=== PATIENT | female | born 1930 | race Caucasian/White ===

== ENCOUNTER 2017-01-18 14:23 | Observation (INO) | payer MEDICARE, BC ==
[~2017-01-18] VITALS: Ht 170.2 cm; Wt 51.7 kg
--- NOTE | ~2017-01-18 | DS ---
PATIENT'S NAME: ALEX BRAY [facility] AGE: 86 Y [address] ROOM: [place] [address] LOCATION: GPCU ADMIT DATE: 01/18/2017 Discharge Summary DISCHARGE DATE: 01/21/2017 FAMILY PHYSICIAN: Lilian Moran APRN ATTENDING PHYSICIAN: Ran Mercado DISCHARGE DIAGNOSES: 1. Chest pain. 2. Syncope. 3. Anxiety. 4. Atrial fibrillation. 5. Atrial flutter. 6. Coronary artery disease. 7. Essential hypertension. 8. Irritable bowel syndrome. 9. Restless legs syndrome. CONSULTS DURING ADMISSION: Cardiology. PROCEDURE DURING ADMISSION: None. HOSPITAL COURSE: The patient is an 86-year-old female with above comorbidities who was admitted for chest pain and syncopal episode. The patient had her enzymes trended out and was on telemetry which were unremarkable. The patient was evaluated by Cardiology and had medication adjustments to her, sotalol which improved her symptoms. Upon day of discharge, the patient was asymptomatic, ambulating and eating without difficulty. DISCHARGE CONDITION: Stable. DISPOSITION: Home. DISCHARGE MEDICATIONS: Please see list. DISCHARGE INSTRUCTIONS: The patient is to follow up with Cardiology and Dr. Mercado in approximately 2 weeks or sooner if any concerns. MD RA BEYER/pippa PATIENT'S NAME: ALEX BRAY [facility] AGE: 86 Y [address] ROOM: [place] [address] LOCATION: GPCU ADMIT DATE: 01/18/2017 Discharge Summary DISCHARGE DATE: 01/21/2017 FAMILY PHYSICIAN: Lilian Moran APRN ATTENDING PHYSICIAN: Ran Mercado /[id number] d: 01/22/17 0604 t: 01/24/17 1253, DISCHARGE SUMMARY
--- NOTE | ~2017-01-18 | CON ---
PATIENT'S NAME: ALEX BRAY [facility] AGE: 86 Y [address] ROOM: [place] [address] LOCATION: GPCU ADMIT DATE: 01/18/2017 Consultation DISCHARGE DATE: FAMILY PHYSICIAN: Lilian Moran APRN ATTENDING PHYSICIAN: Lg Flaherty REFERRING PHYSICIAN: Juanjose Nelson DO CARDIOLOGY CONSULT REPORT REASON FOR CONSULT: Paroxysmal atrial fibrillation. HISTORY OF PRESENT ILLNESS: Ms. Bray is a very pleasant 86-year-old female with history of paroxysmal atrial fibrillation. The patient has been on sotalol. Today, she had recurrent episodes of palpitations. The palpitations lasted for a few seconds each time. Also, she complained of dizziness. No history of syncope. The patient stated that she tripped and fell yesterday but denied any loss of consciousness. No history of chest pain. No history of increasing shortness of breath. The patient stated that she is physically very active. REVIEW OF SYSTEMS: The patient denied any recent change in vision. No history of nausea, vomiting, diarrhea, or constipation. The patient denied any history of fever; however, she has had dry cough off and on and occasional expectoration. She denied any urinary symptoms. Review of other systems is essentially negative. PAST MEDICAL HISTORY: Paroxysmal atrial fibrillation, gastroesophageal reflux disease, history of syncope in the past, essential hypertension. PERSONAL HISTORY: Nonsmoker, nonalcoholic. FAMILY HISTORY: Her mother and her sister had coronary artery disease. SOCIAL HISTORY: The patient is and lives with her . CURRENT MEDICATIONS: 1. Sotalol 120 mg at p.m. and 80 mg in the a.m. 2. Xarelto 20 mg daily. 3. Omeprazole 20 mg daily. 4. Diazepam 5 mg p.o. q.h.s. 5. Aspirin 325 mg daily. PATIENT'S NAME: ALEX BRAY [facility] AGE: 86 Y [address] ROOM: [place] [address] LOCATION: GPCU ADMIT DATE: 01/18/2017 Consultation DISCHARGE DATE: FAMILY PHYSICIAN: Lilian Moran APRN ATTENDING PHYSICIAN: Lg Flaherty PHYSICAL EXAMINATION: GENERAL: She is awake, alert, and oriented, and in no distress. VITAL SIGNS: Her pulse rate is 62 beats per minute, blood pressure is 164/73 mmHg, respiratory rate is 16. HEENT: Her head is atraumatic and normocephalic. Sclerae are clear. Tongue is moist. NECK: No significant jugular venous distention is present. No significant cervical lymphadenopathy is present. CARDIOVASCULAR: S1, S2 are audible. They are regular in rate and rhythm with no audible murmur or rub. RESPIRATORY: Bilateral vesicular breath sounds are audible with no adventitious sounds. ABDOMEN: Soft and nontender. Bowel sounds are present. EXTREMITIES: Showed no significant pedal edema. Healing ecchymosis is present on the left nelson area. NEUROLOGIC: No focal neurological deficits noted. SKIN: Skin is clear except for ecchymosis in the left nelson area. LABORATORY DATA: Sodium 143, potassium 4.1, chloride 108, CO2 of 26, glucose 99, BUN 16, creatinine 0.7, alkaline phosphatase 76, AST 23, ALT 27, magnesium 2.3. CPK 37, CK-MB 0.6, troponin less than 0.04, ProBNP 1178. White blood cell count 6, hemoglobin 13.8, hematocrit 41.8, platelet count 240. RADIOLOGY DATA: Chest x-ray reported prominent cardiac silhouette. Lungs are clear with no focal infiltrate, pleural effusion, or pneumothorax. Her EKG showed sinus rhythm at 65 beats per minute with no acute ST-T wave changes. QTc interval is 462 milliseconds. ASSESSMENT AND PLAN: 1. Paroxysmal atrial fibrillation. The patient is presently in sinus rhythm. We will continue current medical therapy with sotalol and anticoagulation with Xarelto. Monitor the patient on telemetry. Fall precautions. Obtain 2D echocardiogram. 2. Hypertension. We will start the patient on amlodipine and titrate dose as needed for blood pressure control. 3. Palpitations, possibly related to paroxysmal atrial fibrillation. Holter monitor report is not available for review at the present time. Management of other medical problems per primary team. We will follow the patient along with you. Thank you for allowing us in taking part in the care of this pleasant lady. PATIENT'S NAME: ALEX BRAY [facility] AGE: 86 Y [address] ROOM: [place] [address] LOCATION: GPCU ADMIT DATE: 01/18/2017 Consultation DISCHARGE DATE: FAMILY PHYSICIAN: Lilian Moran APRN ATTENDING PHYSICIAN: Lg Flaherty MD LEANDRO MCCARTNEY/modl /[id number] d: 01/19/17 0024 t: 01/28/17 1408, CONSULTATION REPORT
--- NOTE | ~2017-01-18 | ER ---
PATIENT'S NAME: ALEX BRAY [facility] AGE: 86 Y [address] ROOM: [facility] [place] [address] LOCATION: GPCU ADMIT DATE: 01/18/2017 ER/Outpatient Report DISCHARGE DATE: FAMILY PHYSICIAN: Lilian Moran APRN ATTENDING PHYSICIAN: Lg Flaherty Time of Arrival: 1423 hours. Time of Evaluation: 1423 hours. CHIEF COMPLAINT: Near syncope. HISTORY OF PRESENT ILLNESS: The patient is an 86-year-old female, who presents to the emergency department today with a chief complaint of near-syncope. She reports it occurred about 5 hours prior to arrival. She was walking in her hallway when she felt blacking out sensation. She was able to stop and it went away. She does report she has had off and on fluttering in her chest, with the light fluttering with the sharp chest pain on the right side. There is no radiation. Denies any current pain at this time. The patient does have a history of paroxysmal atrial fibrillation, on chronic anticoagulation. The patient denies any ripping or tearing sensation. No radiation to the back. Denies any shortness of breath except with exertion. PAST MEDICAL HISTORY: Heart disease, atrial fibrillation, gastroesophageal reflux disease, anxiety. PAST SURGICAL HISTORY: Tonsillectomy, knee. SOCIAL HISTORY: The patient denies any tobacco, alcohol, or illicit drug use. ALLERGIES: TO MULTAQ, DOXYCYCLINE, AZITHROMYCIN, DURICEF, PENICILLIN, AND ERYTHROMYCIN. MEDICATIONS: Please see list. PRIMARY CARE DOCTOR: Lilian Moran APRN and Félix Elmore MD. 4TH GRADE MATH TEACHER: Feliciano Johnson MD. PATIENT'S NAME: ALEX BRAY [facility] AGE: 86 Y [address] ROOM: [facility] [place], [place] [address] LOCATION: GPCU ADMIT DATE: 01/18/2017 ER/Outpatient Report DISCHARGE DATE: FAMILY PHYSICIAN: Lilian Moran APRN ATTENDING PHYSICIAN: Lg Flaherty REVIEW OF SYSTEMS: All systems are reviewed by myself and are negative with the exception of those discussed in the HPI and past medical history. PHYSICAL EXAMINATION: VITAL SIGNS: Weight 54.5 kg, blood pressure 188/96, pulse 72, respiratory rate 16, temperature 96.6, oxygen saturation 97% on room air. GENERAL: The patient is an 86-year-old female, who appears stated age, in no acute distress at this time. HEENT: Normocephalic, atraumatic. Pupils are equal, round, and reactive to light. NECK: Supple. There is no nuchal rigidity. No JVD. CARDIOVASCULAR: Regular rate and rhythm. No murmurs, rubs, or gallops. LUNGS: Clear to auscultation bilaterally. No wheezes, rales, or rhonchi. ABDOMEN: Soft, nontender, and nondistended. No rebound, rigidity, or guarding. MUSCULOSKELETAL: The patient moves all 4 extremities. 5/5 muscle strength. SKIN: Warm and dry. There are no rashes or lesions noted. LABORATORY DATA AND X-RAYS: Labs and x-rays are obtained. EKG is obtained, is interpreted by myself shows sinus rhythm with a rate of 65, normal axis, QTc of 461, no ST elevation, ST depression, T-wave inversions. CBC is normal. CMP is normal. Coags are normal. LFTs are normal. Cardiac enzymes are normal. ProBNP is 1178. Magnesium is normal. Chest x-ray shows no acute process. Orthostatics are normal. IMPRESSION: 1. Near syncope. 2. Enlarged cardiac silhouette with elevated pro-BNP. 3. Chest pain, rule out acute coronary syndrome. 4. Initial visit. EMERGENCY DEPARTMENT COURSE: The patient was brought back to the examination room. Seen and evaluated by myself. An IV is established. Laboratory analysis and imaging are obtained as described above. Results are obtained. I have discussed results with the patient. I have contacted Dr. Flaherty, who is on-call for the patient's primary care doctor. He does agree to accept the patient for further evaluation, treatment, and management. He has requested Cardiology consultation. I have contacted Dr. Rosa with Cardiology as she will see and evaluate the patient here in the hospital. We did obtain records from Dr. Johnson's office. The patient did have a ZIO patch placed last month, which did show episodes of paroxysmal atrial fibrillation. I did discuss all this with the patient and her , who is at bedside. They are agreeable to PATIENT'S NAME: ALEX BRAY [facility] AGE: 86 Y [address] ROOM: [facility] [place], [place] [address] [facility] ADMIT DATE: 01/18/2017 ER/Outpatient Report DISCHARGE DATE: FAMILY PHYSICIAN: Lilian Moran APRN ATTENDING PHYSICIAN: Lg Flaherty plan without further questions. DISPOSITION: The patient is admitted under the care of Dr. Lg Flaherty in stable condition. DO DEJUAN SHEEHAN/mistyl /[id number] d: 01/18/17 2337 t: 01/26/17 0854, OUTPATIENT REPORT
--- NOTE | ~2017-01-18 | ECHO ---
Transthoracic Echocardiography Report (TTE) Demographics Patient Name ALEX BRAY Date of Study 01/19/2017 Patient Number [id number] Visit Number [id number] Date of 1930 Room Number G6328 Gender Female Number Age 86 year(s) Referring Reynold Prince MD Green Feed Attendant Angie Brambila [facility] Physician Dean Laughlin Physician Interpreting Armani Laughlin Displayer Physician Supervising Ordering Armani Laughlin MD/MLP Physician Nurse Stress Bale Tie Machine Operator Conclusions Contractility Score Summary Normal Left Ventricular contractility was noted. Summary The estimated left ventricular ejection fraction is 55-60%. Basal septal left ventricular hypertrophy. Diastolic assessment reveals Grade I diastolic dysfunction. Mild mitral regurgitation by color Doppler. There is trivial aortic regurgitation by color Doppler. The aortic valve is mildly sclerotic. Procedure Type of Study TTE procedure:2D Echocardiogram, M-Mode, Doppler , Color Doppler. Procedure Date Date: 01/19/2017 Start: 10:10 AM Study Location: Inpatient Portable Technical Quality: Adequate visualization Indications:Hypertension. Patient Status: Routine Rhythm: Within normal limits HR: 60 bpm BP: 147/66 mmHg M-Mode/2D Measurements LV Diastolic Dimension: 4.04 cm LV Systolic Dimension: 2.57 cm LV Septum Diastolic: 0.92 cm LV PW Diastolic: 0.88 cm AO Root Dimension: 2.5 cm Cardiac Output: 4.79 l/min AV Cusp Separation: 2.3 cm RV Diastolic Dimension: 2.51 cm LA volume: 34 ml LVOT: 2 cm RV Base: 3.36 cm LVOT VTI: 25.4 cm RV Mid: 2.85 cm LV Stroke volume: 79.76 ml TAPSE: 2.08 cm TDI-S': 13.8 cm/s Doppler Measurements AV Peak Velocity: 1.14 m/s MV Peak E-Wave: 0.74 m/s AV Peak Gradient: 5.2 mmHg MV Peak A-Wave: 0.77 m/s AV Mean Gradient: 2 mmHg MV E/A Ratio: 0.95 LVOT Peak Velocity: 1.04 m/s MV P1/2t: 68 msec TR Gradient:26.42 mmHg PV Peak Velocity: 0.74 m/s Estimated RAP:5 mmHg PV Peak Gradient: 2.18 mmHg Estimated RVSP: 31 mmHg Estimated PASP: 31.42 mmHg E' Septal Velocity: 0.06 m/s A' Septal Velocity: 0.08 m/s E' Lateral Velocity: 0.06 m/s A' Lateral Velocity: 0.08 m/s Findings Left Ventricle Basal septal left ventricular hypertrophy. Diastolic assessment reveals Grade I diastolic dysfunction. Right Ventricle Normal right ventricle structure and function. Left Atrium Normal left atrial size. Right Atrium Normal right atrial size. IVC measures 2.2 cm with inspiratory collapse. Mitral Valve Mild mitral regurgitation by color Doppler. Aortic Valve There is trivial aortic regurgitation by color Doppler. The aortic valve is mildly sclerotic. Tricuspid Valve Mild tricuspid regurgitation by color Doppler. Pulmonic Valve Trivial pulmonic valve regurgitation by color Doppler. Pericardial Effusion No evidence of pericardial effusion. Miscellaneous Visualized portions of the aortic root and ascending aorta appear normal in size. Pleural Effusion No evidence of pleural effusion. Contractility Score LV regional wall motion:(0-Non visualized 1-Normal 2-Hypokinesis 3-Akinesis 4-Dyskinesis 5-Aneurysm) Signature dtt: XIAO SCHILLING dtd: 01/19/17 1010 Physician Self Edit
[2017-01-18 14:54] LABS: BASOPHIL # 0.1 K/uL (0.0-0.2); BASOPHIL % 1.3 %; EOSINOPHIL # 0.2 K/uL (0.0-0.5); EOSINOPHIL % 3.5 %; HEMATOCRIT 41.8 % (30.0-46.0); HEMOGLOBIN 13.8 g/dL (10.0-15.0); IMMATURE GRANULOCYTE % 0.2 %; LYMPHOCYTE # 2.4 K/uL (0.8-4.0); LYMPHOCYTE % 39.9 %; MCH 31.2 pg (27.0-34.0); MCV 94.4 fl (83.0-98.0); MONOCYTE # 0.7 K/uL (0.0-1.0); MONOCYTE % 10.8 %; MPV 9.3 fl (9.4-12.4); NEUTROPHIL # (ANC) 2.7 K/uL (1.8-7.8); NEUTROPHIL % 44.3 %; NRBC % 0 /100WBC (0-0.00); PLATELET COUNT 240 K/uL (150-450); RBC 4.43 M/uL (3.00-5.00); RDW-CV 13.8 % (11.9-14.6)
[2017-01-18 14:59] LABS: INR - (THERAPEUTIC) 1.1 (0.9-1.1); PROTIME 11.3 SECONDS (9.6-11.1); PTT 28 SECONDS (25-32)
[2017-01-18 15:10] LABS: ALBUMIN 3.6 gm/dL (3.5-5.0); ALK PHOS 76 IU/L (33-138); ALT 27 IU/L (12-78); ANION GAP 13.1 (10.0-19.0); AST 23 IU/L (10-40); BLOOD UREA NITROGEN 16 mg/dL (6-24); CALCIUM 8.7 mg/dL (8.5-10.5); CHLORIDE 108 mMol/L (96-110); CO2 26 mMol/L (22-32); CPK 49 IU/L (21-215); CREATININE 0.7 mg/dL (0.5-1.1); ESTIMATED GFR (MDRD EQUATION) > 60; MAGNESIUM 2.3 mg/dL (1.3-2.6); POTASSIUM 4.1 mMol/L (3.7-5.1); SODIUM 143 mMol/L (135-145); TOTAL BILIRUBIN 0.4 mg/dL (0.0-1.5); TOTAL PROTEIN 7.2 g/dL (6.0-8.4)
[2017-01-18 17:02] LABS: CPK 37 IU/L (21-215)
--- NOTE | 2017-01-18 19:29 | NUR ---
86 Y/O FEMALE ADMITTED FOR SYNCOPE, CHEST PAIN. ALLERGY - ERYTHROMYCIN, PENICILLINS, TETRACYCLINES, AZITHROMYCIN, DOXYCYCLINE MEDICAL & SURGICAL HISTORY - T&A X3, BILAT CATARACT W. IOLI, D&C, RT TOTAL KNEE, RT BREAST LUMPECTOMY X2-3, A-FIB, IBS, DIVERTICULITIS, HEARTBURN, ARTHRITIS, BACK & JOINT STIFFNESS, CONSTIPATION & DIARRHEA, NOCTURIA & OCC URINARY INCONT (MINIMAL AMT), DEPRESSION & ANXIETY, HX PNEUMONIA 2016, TOOTH ABCESS & TOOTH EXTRACTION. PT DID FALL A WEEK AGO AND HAS A LARGE BRUISE ON HER LEFT KNEE & UPPER CHIN. HX SHINGLES. REPORT GIVEN TO PT PRIMARY CARE NURSE CHECO FREGOSO
[2017-01-18] MEDS ORDERED: BETAPACE (GENER80 MG PO ×2 (19:34)
[2017-01-18] MEDS ORDERED: XARELTO20 MG PO (19:35)
[2017-01-18] MEDS ORDERED: PRILOSEC20 MG PO (19:35)
[2017-01-18] MEDS ORDERED: ASPIRIN325 MG PO (19:36)
[2017-01-18] MEDS ORDERED: VALIUM5 MG PO (19:36)
[2017-01-18] MEDS ORDERED: SLEEP AID25 M1 PO (19:37)
[2017-01-18] MEDS ORDERED: CALCIUM + VITA1 EACH PO (19:38)
[2017-01-18] MEDS ORDERED: PRESERVISION A1 EAC2 PO (19:38)
[2017-01-18] MEDS ORDERED: MULTI VITAMIN1 EACH PO (19:39)
--- NOTE | 2017-01-19 04:52 | NUR ---
Significant Event: Pt A&Ox3. Pt went to see PCP as pt c/o feeling lightheaded/dizzy. Pt state that she started to blackout, but didn't. Pt has recent fall hx from fall last week. VS remain stable, RA. LS WNL. Pt has elena RYAN, but only has RYAN in Lt ear here. Pt has hx of Afib and on ASA and xarelto. No c/o pain. Pt x1 contact guard assist. Pt still unsteady while getting up and moving. Follow up:
[2017-01-19 05:49] LABS: BLOOD UREA NITROGEN 15 mg/dL (6-24); CALCIUM 7.9 mg/dL (8.5-10.5); CHLORIDE 110 mMol/L (96-110); CO2 27 mMol/L (22-32); CREATININE 0.6 mg/dL (0.5-1.1); ESTIMATED GFR (MDRD EQUATION) > 60; SODIUM 144 mMol/L (135-145)
[2017-01-19 05:54] LABS: ALBUMIN 3.1 gm/dL (3.5-5.0); TOTAL PROTEIN 6.1 g/dL (6.0-8.4)
[2017-01-19 05:58] LABS: TOTAL BILIRUBIN 0.7 mg/dL (0.0-1.5)
--- NOTE | 2017-01-19 17:45 | NUR ---
PATIENT UP TO BR, UP IN ROOM W/ STAND BY ASSIST. USES CALL LIGHT APPROPRIATELY. EKG SHOWED WIDENING QT. DECREASED SOTALOL DOSE, EKG ORDERED FOR PRIOR TO TONIGHT'S DOSE AND MORNING DOSE OF SOTALOL. TYLENOL FOR HEADACHE, WITH PARTIAL RELIEF. PHYSICAL THERAPY ORDERED. POSSIBLY HOME TOMORROW.
--- NOTE | 2017-01-20 04:13 | NUR ---
Significant Event: alert and oriented.HUGHES, with hearing aid at bedside. pt in sinus rhythm this shift, decrease in sotalol, EKG done prior to admin. Measuring QTc. SBA. Follow up: possible dismissal 01/20
--- NOTE | 2017-01-20 15:14 | NUR ---
Significant Event: QTC over 500 this am, Dr made changes to sotolol was given 80mg this am. HR 50-70s. Pt showered today. EKG before tonights sotolol. No c/o . Follow up:home am?
--- NOTE | 2017-01-21 04:37 | NUR ---
Significant Event: VSS.RA. SOTALOL GIVEN AFTER EKG. UNEVENTFUL NIGHT. EAGER TO RETURN HOME. Follow up:POSSIBLE DISMISSAL 01/21
[2017-01-21 06:08] LABS: ANION GAP 12.8 (10.0-19.0); BLOOD UREA NITROGEN 10 mg/dL (6-24); CALCIUM 8.1 mg/dL (8.5-10.5); CHLORIDE 110 mMol/L (96-110); CO2 25 mMol/L (22-32); CREATININE 0.5 mg/dL (0.5-1.1); ESTIMATED GFR (MDRD EQUATION) > 60; MAGNESIUM 2.1 mg/dL (1.3-2.6); POTASSIUM 3.8 mMol/L (3.7-5.1); SODIUM 144 mMol/L (135-145)
--- NOTE | 2017-01-21 11:00 | NUR ---
Introduced self and role of care management to pt. She states she is planning home today and denies needs. her has it in the back so uncertain who will come and pick her up today but will let me know if she needs any help.
[2017-01-21] MEDS ORDERED: NORVASC2.5 MG PO (12:06)
[2017-01-21] MEDS ORDERED: TYLENOL325 MG PO (12:07)
--- NOTE | 2017-01-21 15:19 | NUR ---
PATIENT IS ALERT & ORIENTATED X3. VSS ON ROOM AIR. GETS UP SBA IN ROOM, SHOWERED TODAY. NO COMPLAINTS OF PAIN THIS SHIFT. DISMISSAL MEDICATIONS, NEW PRESCRIPTIONS, SYNCOPE HANDOUTS GONE OVER WITH PATIENT, ANSWERED QUESTIONS WHEN WARRANTED, NO FURTHER QUESTIONS AT THIS TIME. IV TO LEFT ANTECUBITAL WAS REMOVED WITHOUT DIFFICULTY.
== END 2017-01-21 14:00 | disposition disaster alternative care site (69) ==
LOC: GMED 14:23 → GPCU 16:43
PROVIDERS: Emergency Medicine; Internal Medicine Interventional Cardiology; ADMIT Family Medicine
DX: R07.9 Chest pain, unspecified (principal); R55 Syncope and collapse; I48.0 Paroxysmal atrial fibrillation; I48.92 Unspecified atrial flutter; I25.10 Atherosclerotic heart disease of native coronary artery without angina pectoris; I10 Essential (primary) hypertension; F41.9 Anxiety disorder, unspecified; F32.9 Major depressive disorder, single episode, unspecified; K58.9 Irritable bowel syndrome, unspecified; K21.9 Gastro-esophageal reflux disease without esophagitis; G25.81 Restless legs syndrome; Z88.0 Allergy status to penicillin; Z88.8 Allergy status to other drugs, medicaments and biological substances; Z98.890 Other specified postprocedural states; Z79.82 Long term (current) use of aspirin; Z79.899 Other long term (current) drug therapy
CPT/HCPCS: G0378; G8978; G8979; G8980

== ENCOUNTER → 2017-01-28 | Outpatient (CLI) | payer MEDICARE, BC ==
[~2017-01-28] MED LIST: ASPIRIN325 MG PO; BETAPACE (GENER80 MG PO; CALCIUM + VITA1 EACH PO; MULTI VITAMIN1 EACH PO; NORVASC2.5 MG PO; PRESERVISION A1 EAC2 PO; PRILOSEC20 MG PO; SLEEP AID25 M1 PO; TYLENOL325 MG PO; VALIUM5 MG PO; XARELTO20 MG PO
== END | disposition disaster alternative care site (69) ==
LOC: GRAD 16:04
DX: S09.90XA Unspecified injury of head, initial encounter (principal); W01.10XA Fall on same level from slipping, tripping and stumbling with subsequent striking against unspecified object, initial encounter

== ENCOUNTER → 2017-03-11 | Outpatient (CLI) | payer MEDICARE, BC ==
[2017-03-11 16:31] LABS: BASOPHIL # 0.1 K/uL (0.0-0.2); BASOPHIL % 0.8 %; EOSINOPHIL # 0.2 K/uL (0.0-0.5); EOSINOPHIL % 1.9 %; HEMATOCRIT 36.7 % (30.0-46.0); HEMOGLOBIN 12.3 g/dL (10.0-15.0); IMMATURE GRANULOCYTE % 0.1 %; LYMPHOCYTE # 2.2 K/uL (0.8-4.0); LYMPHOCYTE % 28.5 %; MCH 31.9 pg (27.0-34.0); MCHC 33.5 gm/dL (32.0-36.5); MCV 95.3 fl (83.0-98.0); MONOCYTE # 0.8 K/uL (0.0-1.0); MONOCYTE % 9.7 %; NEUTROPHIL # (ANC) 4.6 K/uL (1.8-7.8); NRBC % 0 /100WBC (0-0.00); PLATELET COUNT 272 K/uL (150-450); RBC 3.85 M/uL (3.00-5.00); RDW-CV 14.6 % (11.9-14.6); WBC 7.8 K/uL (4.0-11.0)
== END | disposition disaster alternative care site (69) ==
LOC: LCNC 16:22
PROVIDERS: Internal Medicine Interventional Cardiology
DX: R53.82 Chronic fatigue, unspecified (principal)

== ENCOUNTER → 2017-03-26 | Outpatient (CLI) | payer MEDICARE, BC | END | disposition disaster alternative care site (69) | LOC: GBCOE 12:30 | DX: Z12.31 Encounter for screening mammogram for malignant neoplasm of breast (principal) | CPT/HCPCS: G0202 ==